=== PATIENT | male | born 1980 | race Caucasian/White ===

== ENCOUNTER 2018-08-30 20:51 | Emergency (ER) | payer SELFPAY, MEDICAID | END 2018-08-30 21:00 | disposition left against medical advice (07) | LOC: E/R 21:00 | DX: Z53.21 Procedure and treatment not carried out due to patient leaving prior to being seen by health care provider (principal) ==

== ENCOUNTER 2019-03-15 17:25 | Emergency (ER) | payer MEDICAID | END 2019-03-15 18:57 | disposition home or self-care (01) | LOC: E/R 18:57 → FTE 17:25 | DX: S60.466A Insect bite (nonvenomous) of right little finger, initial encounter (principal); W57.XXXA Bitten or stung by nonvenomous insect and other nonvenomous arthropods, initial encounter; Y92.9 Unspecified place or not applicable | CPT/HCPCS: 99283; Z7502 ==